=== PATIENT | male | born 1995 | race Caucasian/White ===

== ENCOUNTER 2019-07-29 22:41 | Emergency (ER) | payer BC ==
[~2019-07-29] VITALS: Ht 193 cm; Wt 149.7 kg
[~2019-07-29 22:41] MED LIST: NOHOMEMEDICATIONS; NORCO 5-325 TA1 EACH PO; NORFLEX100 MG PO
[2019-07-29 22:47] VITALS: BP 135/86
[2019-07-29] MEDS ORDERED: ZOFRAN ODT4 MG PO (23:42)
[2019-07-29] MEDS ORDERED: MUCINEX DM ER1 EACH PO (23:42)
[2019-07-29] MEDS ORDERED: TESSALON PERLE100 M1 PO (23:42)
== END 2019-07-29 23:50 | disposition home or self-care (01) ==
LOC: ER 22:41
DX: J11.1 Influenza due to unidentified influenza virus with other respiratory manifestations (principal); R11.0 Nausea; E66.9 Obesity, unspecified; Z68.41 Body mass index [BMI] 40.0-44.9, adult